=== PATIENT | female | born 1970 | race Hispanic/Latino ===

== ENCOUNTER 2025-02-02 10:14 | Emergency (ER) | payer OTHER ==
[~2025-02-02] VITALS: Ht 160 cm; Wt 68.9 kg
[2025-02-02 10:35] VITALS: PULSE 65; RESP 19; TEMP 98.3
[2025-02-02] MEDS: IBUPROFEN 600 MG TAB PO STA (11:04)
[2025-02-02 11:34] VITALS: BP 109/76; PULSE 69; RESP 20; TEMP 98.3; O2SAT 97
== END 2025-02-02 11:31 | disposition home or self-care (01) ==
LOC: FSED 10:39
DX: R05.9 Cough, unspecified (principal); U07.1 COVID-19; R51.9 Headache, unspecified
CPT/HCPCS: 99283